=== PATIENT | male | born 1980 | race Two or more races ===

== ENCOUNTER → 2018-02-26 10:10 | Outpatient (CLI) | payer BC, SELFPAY ==
[2018-02-26 10:47] LABS: Hematocrit 42.1 % (40-54); Hemoglobin 14.6 g/dl (13.0-16.5); Mean Corp Hgb Conc 34.7 g/gl (32-36); Mean Corpuscular Hgb 30.1 pg (27.0-32.0); Mean Corpuscular Volume 86.8 fL (80-94); Mean Platelet Vol. 11.2 fl (6.2-12.0); Platelet Count 225 K/mm3 (150-450); RBC Distribution Width CV 12.1 % (11.6-14.6); RBC Distribution Width SD 37.9 fl (35.1-43.9); Red Blood Count 4.85 M/mm3 (4.6-6.2); Scan Indicated on CBC? Y/N NO; White Blood Count 7.3 K/mm3 (4.4-11.0)
[2018-02-26 11:24] LABS: Hemoglobin A1c 5.3 % (4.2-6.3)
[2018-02-26 11:25] LABS: Anion Gap 6 (5-15); BUN 12 mg/dL (7-18); BUN/Creat Ratio 13.2 RATIO (10-20); Calcium,Total 8.7 mg/dL (8.5-10.1); Chloride 104 mmol/L (98-107); Cholesterol 159 mg/dL (200); Creatinine, Serum 0.91 mg/dL (0.70-1.30); EST Glomerular Filtration Rate 101 mL/min (>60); Est Glom Filt Rate - Afr Amer 122 mL/min (>60); Glucose 82 mg/dL (74-106); High Density Lipoprotein 48 mg/dL; Iron 118 ug/dL (65-175); Potassium 4.3 mmol/L (3.5-5.1); Sodium Level 140 mmol/L (136-145); Triglycerides 92 mg/dL; Very Low Density Lipoprotein 18 mg/dL (5-40)
[2018-02-28 10:13] LABS: Vitamin B12 456 pg/mL (211-911); Vitamin D,25 Hydroxy 19.9 ng/mL (29.95-100.01)
--- OUTSIDE RECORDS SUMMARY | 2018-06-01 09:46 | XMS RPT_ITS ---
:1980 Author Organization [facility] Care Team Providers Name Role Phone Giorgio Okeefe Attending Unavailable Giorgio Okeefe Referring Unavailable Giorgio Okeefe Primary Care Unavailable PROBLEMS PROBLEMS DATE TYPE CONDITION / ATTENDING STATUS SOURCE CODE 02/26/2018 Unknown Z78.9 - Other Stan Okeefe specified [facility] health status / Hospital Z78.9(ICD-10) Repository 02/26/2018 Unknown Z13.1 - Stan Okeefe Encounter for [facility] screening for Hospital diabetes Repository mellitus / Z13.1(ICD-10) 02/26/2018 Unknown Z13.220 - Stan Okeefe Encounter for [facility] screening for Hospital lipoid Repository disorders / Z13.220(ICD-10) PROCEDURES PROCEDURES No Procedure Records FoundRESULTS RESULTS CBC-COMPLETE BLOOD CNT Collected: 02/26/2018 Status: F Source: [facility] NO DIFF 10:28 AM [facility] REPOSITORY TYPE CODE TESTS RESULT OUT OF RANGE REFERENCE UNITS LAB L100.1000 4.4-11.0 K/mm3 Normal WBC 7.3 LAB L100.1200 4.6-6.2 M/mm3 Normal RBC 4.85 LAB L100.1300 13.0-16.5 g/dl Normal HGB 14.6 LAB L100.1400 40-54 % Normal HCT 42.1 LAB L100.1500 80-94 fL Normal MCV 86.8 LAB L100.1600 27.0-32.0 pg Normal MCH 30.1 LAB L100.1700 32-36 g/gl Normal MCHC 34.7 LAB L100.1810 11.6-14.6 % Normal RDW CV 12.1 LAB L100.1820 35.1-43.9 fl Normal RDW SD 37.9 LAB L100.1900 150-450 K/mm3 Normal PLT 225 LAB L100.2000 6.2-12.0 fl Normal MPV 11.2 Performed By: #### L100.0500, L501.9985, L500.2500, L500.4100, L503.6150, L503.0105, L506.1000 #### [facility] [address] [place], [address] HEMOGLOBIN A1C Collected: 02/26/2018 Status: F Source: [place] 10:28 AM [facility] REPOSITORY TYPE CODE TESTS RESULT OUT OF RANGE REFERENCE UNITS LAB L501.9985 4.2-6.3 % Normal HGB A1C 5.3 Performed By: #### L100.0500, L501.9985, L500.2500, L500.4100, L503.6150, L503.0105, L506.1000 #### [facility] [address] [place], [place], [address] BASIC METABOLIC Collected: 02/26/2018 Status: F Source: [place] PROFILE (BMP) 10:28 AM [facility] REPOSITORY TYPE CODE TESTS RESULT OUT OF RANGE REFERENCE UNITS LAB L501.0100 74-106 mg/dL Normal GLU 82 Result Comment: Please note revised GLUCOSE reference range effective 2017. LAB L501.1000 7-18 mg/dL Normal BUN 12 LAB L501.1100 0.70-1.30 mg/dL Normal CREAT,SERUM 0.91 Result Comment: The validity of the calculated GFR AND GFRAA in patients over 70 years has not been determined. Clinical correlation is essential. LAB L501.1110 >60 mL/min Normal EST GFR 101 Result Comment: Non- GFR Calc LAB L501.1115 >60 mL/min Normal EST GFR - AA 122 Result Comment: GFR Calc LAB L501.1300 10-20 RATIO Normal BUN/CRE 13.2 LAB L501.2200 8.5-10.1 mg/dL CA Normal 8.7 LAB L501.5300 136-145 mmol/L NA Normal 140 LAB L501.5600 3.5-5.1 mmol/L K Normal 4.3 LAB L501.5900 98-107 mmol/L CL Normal 104 LAB L501.6100 21.0-32.0 mmol/L Normal CO2 30.0 LAB L501.6200 5-15 Normal GAP 6 Performed By: #### L100.0500, L501.9985, L500.2500, L500.4100, L503.6150, L503.0105, L506.1000 #### [facility] [address] [place], [place], [address] LIPID PROFILE Collected: 02/26/2018 Status: F Source: [place] 10:28 AM [facility] REPOSITORY TYPE CODE TESTS RESULT OUT OF RANGE REFERENCE UNITS LAB L501.4900 200 mg/dL Normal CHOL 159 Result Comment: <200 mg/dL Desirable 200-240 mg/dL Borderline >240 mg/dL High Risk LAB L501.5000 mg/dL Normal TRIG 92 Result Comment: The drugs N-Acetylcysteine and Metamizole may falsely depress this assay. Serum Triglycerides Reference Interval Normal <150 mg/dL Borderline high 150 - 199 mg/dL High 200 - 499 mg/dL Very High > or = 500 mg/dL LAB L501.6400 mg/dL Normal HDL 48 Result Comment: The drugs N-Acetylcysteine and Metamizole may falsely depress this assay. Reference Range HDL <40 mg/dL Low HDL Cholesterol HDL >or= 60 mg/dL High HDL Cholesterol LAB L501.6500 0-130 mg/dL Normal LDL 93 LAB L501.6600 5-40 mg/dL Normal VLDL 18 Performed By: #### L100.0500, L501.9985, L500.2500, L500.4100, L503.6150, L503.0105, L506.1000 #### [facility] [address] [place], [place], [id number] IRON Collected: 02/26/2018 Status: F Source: [place] 10:28 AM [facility] REPOSITORY TYPE CODE TESTS RESULT OUT OF RANGE REFERENCE UNITS LAB L503.6150 65-175 ug/dL Normal IRON 118 Performed By: #### L100.0500, L501.9985, L500.2500, L500.4100, L503.6150, L503.0105, L506.1000 #### [facility] [address] [place], [address] VITAMIN B12 Collected: 02/26/2018 Status: F Source: [place] 10:28 AM [facility] REPOSITORY TYPE CODE TESTS RESULT OUT OF RANGE REFERENCE UNITS LAB L503.0105 211-911 pg/mL Normal Vitamin B12 456 Performed By: #### L100.0500, L501.9985, L500.2500, L500.4100, L503.6150, L503.0105, L506.1000 #### [facility] [address] [place], [place], [id number] VITAMIN D,25 HYDROXY Collected: 02/26/2018 Status: F Source: [place] 10:28 AM [facility] REPOSITORY TYPE CODE TESTS RESULT OUT OF REFERENCE UNITS RANGE LAB L506.1000 29.95-100.01 ng/mL Low Vitamin D 19.9 25-OH Result Comment: Vitamin D 25(OH) Status Range Deficiency <20 ng/mL (50nmol/L) Insuffciency 20 - 30 ng/mL (50 - 75 nmol/L) Sufficiency 30 - 100 ng/mL (75 - 250 nmol/L) Toxicity >100 ng/mL (>250 nmol/L) Performed By: #### L100.0500, L501.9985, L500.2500, L500.4100, L503.6150, L503.0105, L506.1000 #### [facility] [address] [place], [place], [address] ALLERGIES ALLERGIES No Allergies Records FoundENCOUNTERS ENCOUNTERS ADMIT/DISCHARGE ACCOUNT ADMITTING ENCOUNTER LOCATION SOURCE NUMBER CLASS 02/26/2018 [id number] Ambulatory [address] ing:LAB Repository PAYERS PAYERS ENCOUNTER GUARANTOR PAYER SUBSCRIBER SOURCE 02/26/2018 [facility]ANTHEMPolic PATELDOB: [facility] [address] y Number: [id number] [id number] Repository [address]Gds: (201) Date:[id number] [phone] () [id number], [place] [address]JF: 02/26/2018 Secondary NOT GIVENUNK [place] Insurance:SELF PAY Community [facility]: Effective Repository Date:2018-02-26
== END ==
PROVIDERS: Family Provider Family Medicine; PCP Family Medicine; Referring Provider Family Medicine; Visit Provider Family Medicine
DX: Z78.9 Other specified health status (principal); Z13.1 Encounter for screening for diabetes mellitus; Z13.220 Encounter for screening for lipoid disorders
CPT/HCPCS: 36415; 80048; 80061; 82306; 82607; 83036; 83540; 85027